=== PATIENT | female | born 1960 | race Caucasian/White ===

== ENCOUNTER 2018-09-05 08:21 | Inpatient (IN) ==
[~2018-09-05 08:21] MED LIST: MORPHINE SULFATE 15 MG TABLET.SA PO PRN; ROPIVACAINE HCL/PF 100 MG, EPINEPHrine 0.2 MG, KETOROLAC TROMETHAMINE 30 MG in NORMAL S... IJ PRN; TRANEXAMIC ACID 1,000 MG in NORMAL SALINE 100 ML IV PRN; ceFAZolin SODIUM 1 GM VIAL IV PRN
--- NOTE | 2018-09-05 09:04 | ANES ---
Anesthesia Pre Procedure Eval Vitals/Labs: Last Vital Signs Temp 36.8 C 09/05/18 08:40 Pulse 122 H 09/05/18 08:40 Resp 16 09/05/18 08:40 BP 130/87 09/05/18 08:40 Pulse Ox 99 09/05/18 08:40 HOME MEDICATIONS alprazolam 0.25 mg tablet 0.25 mg PO TID PRN 05/27/18 [Last Taken Unknown] levothyroxine 112 mcg capsule 112 mcg PO DAILY 05/27/18 [Last Taken Unknown] metoprolol tartrate 50 mg tablet 75 mg PO DAILY tab 05/27/18 [Last Taken Unknown] aspirin 81 mg tablet,delayed release 81 mg PO DAILY 05/31/18 [Last Taken Unknown] clopidogrel 75 mg tablet 75 mg PO DAILY 05/31/18 [Last Taken 08/30/18] tramadol 50 mg tablet See Rx Instructions PO Q6H #30 tab 07/21/18 [Last Taken Unknown] oxycodone-acetaminophen 5 mg-325 mg tablet See Rx Instructions PO Q6H #60 tab 08/02/18 [Last Taken Unknown] Allergies/Adverse Reactions: Allergies Allergy/AdvReac Type Severity Reaction Status Date / Time No Known Allergies Allergy Verified 07/18/18 20:00 - Planned Procedure Planned Procedure: Right Total Knee Arthroplasty Medication List Reviewed:: Yes Allergies Verified: Yes Medical History (Last Updated 09/05/18 @ 09:03 by Carroll Deluna CRNA) Sleep apnea Arthritis Onset Date: Unknown Constipation Onset Date: Unknown Diarrhea Onset Date: Unknown Knee osteoarthritis Onset Date: Unknown MRSA (methicillin resistant Staphylococcus aureus) Onset Date: Unknown buttock and nares Sinusitis Onset Date: Unknown hx of stent placement left leg Onset Date: 05/19/18 [facility] Surgical History (Last Reviewed 09/05/18 @ 09:02 by Carroll Deluna CRNA) H/O rotator cuff surgery right shoulder H/O bilateral breast reduction surgery Onset Date: 1999 H/O: hysterectomy Onset Date: 1998 Hx of cholecystectomy Onset Date: 1998 removed Other joint replacement by other means Onset Date: 2014 includes revision left 2013 and 2014 Family History (Last Reviewed 09/05/18 @ 09:02 by Carroll Deluna CRNA) Father Heart disease Brother Leukemia Mother Alive and well - Family Anesthesia History Family History:: no untoward family reactions to anesthesia, no familial bleeding tendencies, no family history of clotting disorders, no family history of premature - Airway/Neck/Teeth Within Normal Limits:: Yes Teeth Condition: Intact Denture Type: Perm crown/bridge Mallampatti Score: 3 Thyromental (T-M) distance: > 6 cm Mandibulo Hyoid distance: > 3 cm - Respiratory Respiratory: lungs clear Smoking Status: Never smoker Discussed smoking cessation including day of surgery: No Sleep Apnea currently treated: Yes Sleep Apnea by current assessment: No Discussed Risks/Treatment of JOCELYNN: No - Cardiovascular Tolerates Activity: Fair Heart Sounds: S1 & S2, Regular - Anesthesia Assessment and Plan ASA Class: PS, III Anesthesia Type Plan: Block - Right ultrasound guided peripherl nerve block for postop analgesia, Spinal
[2018-09-05] MEDS: RINGER'S SOLUTION,LACTATED 1,000 ML IV PRN ×3 (09:16→11:15)
[2018-09-05] MEDS ORDERED: MAGNESIUM HYDROXIDE 30 ML UDC PO PRN (11:27)
[2018-09-05] MEDS ORDERED: MAG HYDROX/ALUMINUM HYD/SIMETH 30 ML UDC PO PRN (11:27)
[2018-09-05] MEDS ORDERED: ACETAMINOPHEN 500 MG TABLET PO PRN (11:27)
[2018-09-05] MEDS ORDERED: ZOLPIDEM TARTRATE 5 MG TABLET PO PRN (11:27)
[2018-09-05] MEDS ORDERED: DEXTROSE 5%-LACTATED RINGERS 1,000 ML IV PRN (11:27)
[2018-09-05] MEDS ORDERED: diphenhydrAMINE HCL 50 MG/ML VIAL IV PRN (11:27)
--- NOTE | 2018-09-05 11:27 | OR ---
Operative Report - Dictated Report Narrative: Date: 09/05/2018 Preoperative diagnosis: Right Knee degenerative joint disease. Postoperative diagnosis: Right Knee degenerative joint disease. Procedure: Right Total knee arthroplasty. Surgeon: Erich Eugene M.D. Medical Sales: Hector Barboza PA-C Anesthesia: Spinal with regional block and local periarticular joint injection. Complications: None Specimens: Bone for disposal. Estimated blood loss: Minimal. Tourniquet time: 85 Minutes at 350 millimeters of mercury. Retained implants: Depuy Attune size 6 narrow right lugged cemented posterior stabilized femoral component. Size 5 fixed-bearing cemented tibial platform. 6 by 5 millimeter posterior stabilized cross-linked tibial insert. 35 millimeter medialized patella button. Indications: Mrs. Boyd is a 58-year-old female who has had long-standing right knee pain and arthrosis. This patient was followed in my clinic for period of time with significant complaints of right knee pain consistent with arthritic changes. She had failed conservative measures including, but not limited to, activity modification, passage of time, medications, and other conservative measures. Patient wished to proceed with surgical treatment. The risks, benefits, and alternatives were discussed in clinic. The risks of , blood clots, bleeding, infection, nerve/tendon blood vessel/ injury, malposition of components, intraoperative fracture, postoperative limited range of motion, persistent pain, failure of components, and need for additional procedures. Patient wished to proceed consent was obtained after answering all questions. Procedure: After marking the correct extremity on the floor, the patient was taken to the operating room. A timeout was performed. IV antibiotics consisting of Ancef were administered prior to the procedure. A regional followed by spinal anesthetic was induced by anesthesia, per my request, on the operative table with all bony prominences well-padded. Barlow catheter was placed, and a bump was placed under the operative side buttock. SCDs and ALEX hose were utilized on the nonoperative leg. A well-padded tourniquet was applied to the operative thigh. The operative leg was then pre-scrubbed with alcohol prepped, and draped in a standard sterile fashion. After exsanguinating the extremity with an Esmarch bandage, the tourniquet was inflated. After marking out the anterior knee for standard incision centered over the patella, the skin was incised and dissected down to the joint retinaculum. The joint retinaculum was marked out as well as the horizontal axis of the patella, and a standard medial parapatellar arthrotomy was then made. The most proximal aspect of the quadriceps tendon and the patella tendon insertion were protected from release. A partial synovectomy was performed as well as a resection of the infrapatellar fat pad. The distal femoral fat pad proximal to the trochlea was also resected using cautery. The soft tissues were elevated off the medial aspect of the proximal tibia using a Pearson elevator ensuring that we did not transect the medial collateral ligament. Upon initial evaluation range of motion was approximately 5 degrees to 120 degrees of flexion. There were signs of advanced arthrosis in the medial, lateral, and patellofemoral joint spaces. There were large marginal osteophytes which were removed with a rongeur. The knee was hyperflexed and the patella was tucked laterally. Protecting the surrounding soft tissues with Homans, an entry drill was placed down the femoral canal using Whitesides line for guidance into the entry point. The intramedullary femoral alignment laura was utilized in order to cut the distal femur in 5 degrees of valgus resecting 10 millimeters of bone. Next the distal femur was sized to a size 6. A posterior referencing guide was utilized to place the distal femoral cutting block in 3 degrees of external rotation. This was pinned into place. The rotation was confirmed both visually and based on anatomic landmarks. The 4 in 1 cutting jig of the appropriate size was utilized in order to make all bony cuts. The angle wing was used to ensure no notching. Retractors were utilized in order to protect surrounding soft tissues. This cut did not result in any excessive notching. We then cut the box centered over the distal femur. This allowed for resection of the anterior and posterior cruciate ligaments. I then turned my attention to the preparation of the tibia. Using an extra medullary tibial alignment laura, 5 millimeters of bone was resected off the medial articular surface. This was made perpendicular to the mechanical axis of the joint with the alignment laura centered over the ankle mortise. The alignment laura was checked and was noted to be parallel to the mechanical axis, centered over the medial one third of the tibial tubercle, paralleling the anterior surface of the tibia. We then turned our attention to the remaining meniscus and soft tissues. These were removed while protecting the surrounding ligaments and soft tissues. The marginal osteophytes off the anterior, posterior, medial, lateral aspects of the femur and tibia were removed. The tibia was sized out to a size 5. Next the tibia was drilled and punched in an externally rotated position. Next the trial femur and a series of tibial inserts were utilized in order to allow for full extension and maximal flexion. It was found that a 5 millimeter insert gave the best range of motion and stability at multiple flexion points as well as at full extension there was less than 2 mm of gapping both medially and laterally. There is minimal anterior translation with the knee at 90 degrees of flexion and no signs of being able to dislocate the knee. The patella was then prepared. The initial thickness was 23 millimeters. This was reamed down to 13 millimeters parallel to the anterior surface of the patella. It was sized out to a size 35 medialized patella button. This was then drilled and trialed. Without any medial restraint the patella tracked appropriately and did not sublux or dislocate. At this point, it was felt these were the appropriate sized implants, and all trials were removed. The standard periarticular joint injection consisting of ropivacaine, Toradol, and epinephrine were injected into the periarticular joint tissues. The bony surfaces were thoroughly irrigated with a pulsatile-suction saline irrigation device. A bone plug from the prior resected anterior chamfer cut was placed into the drill hole at the distal femur. The bony surfaces were then dried in preparation for placement of the implants. The cement was vacuum mixed per the grocery department manager's instructions. The cement was placed on the dry bony surfaces and posterior aspect of the implants. The implants were impacted into place, removing all extruded cement. At this point anesthesia administered tranexamic acid per protocol intravenously. The knee was placed in extension with axial loading with the trial insert while the cement cured. Once the cement cured, all remaining extruded cement was removed. The knee was placed through a range of motion with the trial insert to ensure appropriate range of motion and stability. Final range of motion was approximately 0 to 120 degrees. The knee was again thoroughly irrigated with pulsatile saline lavage. The final polyethylene insert was then impacted into place ensuring no retained soft tissues. The remaining periarticular joint injection was injected. A medium Hemovac drain was placed exiting superior laterally. The knee was then placed over a triangle and the arthrotomy was closed with interrupted #1 Vicryl after thoroughly irrigating the joint. The deep and subcutaneous tissues were closed with interrupted 0 and 3-0 Vicryl respectively. Skin was closed with a running subcutaneous 3-0 Monocryl and Prineo Dermabond dressing. 4 x 4's, Sof-Rol, and a full leg Westley wrap were applied. All sponge, needle, blade, and instrument counts were correct prior to closing the wounds. Postoperative condition: The patient was awoken and transferred to the postanesthesia care unit in stable condition. Plan is to be admitted to the inpatient medical/surgical floor postoperatively for 24 hours of IV antibiotics, physical therapy, occupational therapy, and medical comanagement. Patient will be weightbearing as tolerated with range of motion as tolerated. DVT prophylaxis will be with SCDs, ALEX hose, and pharmacological anticoagulation. Anticipated hospital stay is approximately 1-3 days.
[2018-09-05] MEDS ORDERED: ALPRAZolam 0.25 MG TABLET PO PRN (11:29)
--- NOTE | 2018-09-05 11:48 | ANES ---
Post Anesthesia Discharge - Transfer of Care Transfer of Care handoff given to nurse: Yes - Discharge from PACU Discharge from PACU when meets criteria: Yes - Discharge to ASU Discharge to ASU-no complications/pt stable: Yes
--- NOTE | 2018-09-05 11:51 | ANES ---
Anesthesia Procedure Note Procedure Note: ANESTHESIA PROCEDURE NOTE Date of Procedure: 09/05/2018. Time of procedure: 924. Performed by: Carroll Deluna CRNA [employer]: None. Preprocedure diagnosis: Right knee degenerative joint disease. Post procedure diagnosis: Same. Procedure: Right ultrasound guided adductor canal block for postoperative analgesia. Indications: The patient is a 58-year-old female, requesting right ultrasound- guided abductor canal block for postoperative analgesia related to right total knee arthroplasty. Findings: See below. Details of the procedure: The tissue over the intended target site was cleansed with ChloraPrepand draped in a sterile fashion. 2 ml Lidocaine 1 % was infiltrated to the skin and subcutaneous tissue at the intended target site. Under sterile technique and ultrasound guidance a 18-gauge Tuohy needle was inserted through the right sartorius muscle to the saphenous nerve just anterior and medial to the superficial femoral artery and vein. 15 mL's of 0.5% bupivacaine was injected after negative aspiration for blood. Needle tip and spread of local anesthetic surrounding the saphenous nerve was observed throughout the injection with real time ultrasound visualization. The Tuohy needle was then removed intact. No complications were noted. The images were retained in the Hospital medical database. EBL: Minimal. Fluids: N/A. Specimen: N/A. Post procedure condition: The patient tolerated the procedure well. No complications were noted. Thank you for this consultation. Carroll Deluna CRNA
[2018-09-05] MEDS: KETOROLAC TROMETHAMINE 15 MG/ML VIAL IV SCH ×3 (12:27→23:31)
[2018-09-05] MEDS: oxyCODONE HCL/ACETAMINOPHEN 1 TAB TABLET PO PRN ×2 (14:19→19:23)
[2018-09-05] MEDS: ceFAZolin SODIUM 1 GM in DEXTROSE 5 % IN WATER 100 ML IV SCH ×4 (14:20→19:42)
[2018-09-05] MEDS: MORPHINE SULFATE 2 MG/ML DISP.SYRIN IV PRN (14:56)
[2018-09-05] MEDS: ASPIRIN 81 MG TAB.CHEW PO SCH (21:07)
[2018-09-05] MEDS: SENNOSIDES/DOCUSATE SODIUM 1 TAB TABLET PO SCH (21:07)
[2018-09-05] MEDS: MORPHINE SULFATE 15 MG TABLET.SA PO SCH (21:07)
[2018-09-05] MEDS: ONDANSETRON HCL/PF 2 MG/ML VIAL IV PRN (23:29)
[2018-09-06] MEDS: ONDANSETRON HCL/PF 2 MG/ML VIAL IV PRN ×2 (00:33→13:30)
[2018-09-06] MEDS: KETOROLAC TROMETHAMINE 15 MG/ML VIAL IV SCH ×4 (00:36→17:57)
[2018-09-06] MEDS: ceFAZolin SODIUM 1 GM in DEXTROSE 5 % IN WATER 100 ML IV SCH ×2 (00:37)
[2018-09-06] MEDS: MORPHINE SULFATE 2 MG/ML DISP.SYRIN IV PRN ×3 (01:48→18:46)
[2018-09-06] MEDS: oxyCODONE HCL/ACETAMINOPHEN 1 TAB TABLET PO PRN ×4 (05:00→22:22)
[2018-09-06 05:23] LABS: Hematocrit 33.8 % (37.0-47.0); Mean Cell Volume 80.7 fl (78-100); Mean Corpuscular Hemoglobin 23.9 pg (27-31); Mean Corpuscular Hgb Conc 29.6 g/dl (32-36); Mean Platelet Volume 8.8 fl (8-12.5); Platelet Count 320 K/mm3 (150-450); Red Blood Count 4.19 M/mm3 (4.2-5.4); Red Cell Distribution Width 16.1 % (11.5-14.0); White Blood Count 7.1 K/mm3 (4.0-10.5)
[2018-09-06 05:31] LABS: Anion Gap 8.8 mmol/L (6.8-13.8); BUN/Creatinine Ratio 14.1 (9.0-21.6); Calcium * 7.9 mg/dL (7.9-10.9); Carbon Dioxide 29.2 mmol/L (24-32.6); Estimated Creat Clear 71.5
[2018-09-06] MEDS: LEVOTHYROXINE SODIUM 112 MCG TABLET PO SCH (06:58)
--- NOTE | 2018-09-06 08:08 | PN ---
Subjective - Date and Time Seen Date: 09/06/18 Time: 08:04 Subjective Narrative: Subjective: Reports difficulty sleeping last night. Was able to get to the chair with therapy. Pain is well-controlled. Voiding without any complications. Tolerating by mouth intake. Denies any nausea or vomiting. Denies calf pain. Physical exam: Alert and oriented to person, place and time Right lower Extremity: Palpable dorsalis pedis pulse. Sensation grossly intact to light touch. Dressings clean and dry. Able to flex and extend ankle and toes. No excessive drainage. Calf and thigh are soft and nontender. Assessment: Postop day 1 status post right total knee arthroplasty. Plan: Due to the need for pain control, post-operative limited mobility, protection of the surgical site and joint, monitoring of the wound, and the management of chronic medical conditions, she requires continued inpatient care. She has had continued pain and has been unable to meet therapy goals to allow her to safely be discharged home. Continue with physical and occupational therapy weightbearing as tolerated. Continue with anticoagulation. 24 hours postoperative prophylactic antibiotics. Pain control with goal to rely on oral medications. Continue bowel regimen. Will need 6 weeks with walker or assitive device to protect joint while ambulating during the recovery process. Discharge planning. Discontinue drain and Barlow catheter. Objective - Vitals Vitals: Last Vital Signs Temp 36.7 C 09/06/18 06:25 Pulse 92 09/06/18 06:25 Resp 16 09/06/18 06:25 BP 100/56 09/06/18 06:25 Pulse Ox 91 L 09/06/18 06:25 - Abnormal Lab Findings Abnormal Lab Findings: Abnormal Lab Results 09/06/18 Range/Units 05:17 RBC 4.19 L (4.2-5.4) M/mm3 Hgb 10.0 L (12.5-16.0) gm/dL Hct 33.8 L (37.0-47.0) % MCH 23.9 L (27-31) pg MCHC 29.6 L (32-36) g/dl RDW 16.1 H (11.5-14.0) % Cauti Physician Documentation - Urinary Catheter Management Urethral (Barlow) Date of Insertion: 09/05/18 Time of Insertion: 09:50 Assessment/Plan - Problems/Diagnosis (1) Acute blood loss anemia Problem: Acute (2) Sleep apnea Problem: Chronic (3) S/P total knee arthroplasty Problem: Acute Qualifiers: Laterality: right Qualified Code(s): Z96.651 - Presence of right artificial knee joint (4) Anxiety Problem: Chronic (5) Depression Problem: Chronic (6) Hypothyroid Problem: Chronic (7) Hypertension Problem: Chronic
[2018-09-06] MEDS ORDERED: ASPIRIN 81 MG TABLET.DR PO SCH (09:00)
[2018-09-06] MEDS: METOPROLOL TARTRATE 25 MG TABLET PO SCH (09:12)
[2018-09-06] MEDS: MORPHINE SULFATE 15 MG TABLET.SA PO SCH ×2 (09:13→20:30)
[2018-09-06] MEDS: ENOXAPARIN SODIUM 40 MG/0.4 ML SYRG SC SCH (11:01)
[2018-09-06] MEDS: SENNOSIDES/DOCUSATE SODIUM 1 TAB TABLET PO SCH (20:30)
[2018-09-06] MEDS: ASPIRIN 81 MG TAB.CHEW PO SCH (20:30)
[2018-09-07] MEDS: KETOROLAC TROMETHAMINE 15 MG/ML VIAL IV SCH ×2 (00:24→07:49)
[2018-09-07] MEDS: oxyCODONE HCL/ACETAMINOPHEN 1 TAB TABLET PO PRN ×2 (04:28→13:18)
[2018-09-07] MEDS: LEVOTHYROXINE SODIUM 112 MCG TABLET PO SCH (06:46)
[2018-09-07] MEDS: MORPHINE SULFATE 15 MG TABLET.SA PO SCH (09:45)
[2018-09-07] MEDS: METOPROLOL TARTRATE 25 MG TABLET PO SCH (09:46)
[2018-09-07] MEDS: ENOXAPARIN SODIUM 40 MG/0.4 ML SYRG SC SCH (09:48)
[2018-09-07] MEDS ORDERED: ONDANSETRON 4 MG TAB.RAPDIS PO PRN (11:59)
--- NOTE | 2018-09-07 15:28 | DS ---
(1) Acute blood loss anemia Problem: Acute (2) Sleep apnea Problem: Chronic (3) S/P total knee arthroplasty Problem: Acute Qualifiers: Laterality: right Qualified Code(s): Z96.651 - Presence of right artificial knee joint (4) Anxiety Problem: Chronic (5) Depression Problem: Chronic (6) Hypothyroid Problem: Chronic (7) Hypertension Problem: Chronic Description of Stay: Mrs. Boyd was admitted to the floor after undergoing right total knee arthroplasty. Tolerated this well. Was admitted to the floor postoperatively for 24 hours of IV antibiotics, pain control, medical comanagement, and occupational and physical therapy. OT and PT were consulted to assist with activities of daily living and ambulation. Was made weightbearing as tolerated with range of motion as tolerated. Pain was initially controlled with IV regimen. This was transitioned to oral once tolerating a by mouth intake. Was resumed on home diet and medications. Had a Barlow catheter inserted and the operating room which was discontinued on postoperative day 1. A drain was placed intraoperatively into the knee which was discontinued on postoperative day 1. Lovenox SCD and ALEX hose were utilized for DVT prophylaxis. Vital signs remained stable to the hospital course. Serial labs were obtained which showed a final hemoglobin of 10.0 grams. BMP was reviewed and was stable. Physical examination throughout the hospital course showed an extremity that had sensation that was intact to light touch, palpable pulses, a benign wound, motor intact to the toes, ankle, and knee. Knee range of motion was approximately 10 degrees to 60 degrees. Once an oral pain regimen was tolerated and physical therapy goals were met, it was felt that they were stable for discharge to home. Instructions: Continue with weightbearing as tolerated and range of motion as tolerated. It is okay to shower and get the wound wet as long as there is no drainage from the wound. Do not bathe or soak the wound. If there is any drainage from the wound keep the wound clean and dry and cover with dry gauze and tape. Change every 2- 3 days as needed if there is any drainage. Cover wound while showering if there is any drainage. Continue with physical therapy. Resume home diet. Report any fever over 101.5 Fahrenheit, uncontrolled pain, increased drainage, foul odor of drainage, new or increased calf pain or shortness of breath, or any other significant complaints. Plavix will be restarted in approximately 3-4 days. A 325mg dialy aspirin will be started after finishing anticoagulation if not allergic. Continue with ALEX hose on the operative extremity until instructed otherwise. No driving until instructed otherwise. Follow up in approximately 10-14 days. Procedures Performed: see notes below List Procedures: Right total knee arthroplasty Results and Findings: Lab Pending Results 09/06/18 05:17: WBC 7.1, RBC 4.19 L, Hgb 10.0 L, Hct 33.8 L, MCV 80.7, MCH 23.9 L, MCHC 29.6 L, RDW 16.1 H, Plt Count 320, MPV 8.8 09/06/18 05:17: Sodium 140, Plasma Sodium 140, Potassium 4.0, Chloride 106, Carbon Dioxide 29.2, Anion Gap 8.8, BUN 11, Creatinine 0.78, Est GFR (Non-Af Amer) 81, BUN/Creatinine Ratio 14.1, Random Glucose 100, Calcium 7.9 Discharge Location: Home Disposition: Home self-care Condition: Good Discharge Activity: Activity as tolerated, Weight bearing Discharge Diet: General/regular food Referrals: Velma To FNP [Primary Care Provider] - Additional Patient Instructions (free text): Outpatient Physical Therapy at [facility] rehab tomorrow on Sep 08 at 9:45am. Follow up with Orthopedic Dr. Eugene on WednesdaySeptember 27 at 10:45am. Prescriptions (Any new or edited meds): Enoxaparin Sodium [Lovenox] 40 mg SC Q24H #7 disp.syrin Morphine Sulfate [Ms Contin] 15 mg PO Q12H #20 tablet.sa Ondansetron [Zofran Odt] 4 mg PO Q6H PRN #20 tab.rapdis PRN Reason: Nausea And Vomiting oxyCODONE HCL/ACETAMINOPHEN [Percocet 5 MG/325 MG] 2 tab PO Q4H PRN #60 tablet PRN Reason: Moderate Pain (Pain Scale 4-6) Complete Home Medications List: Complete Home Medication List: alprazolam 0.25 mg tablet 0.25 mg PO TID PRN 05/27/18 levothyroxine 112 mcg capsule 112 mcg PO DAILY 05/27/18 metoprolol tartrate 50 mg tablet 75 mg PO DAILY tab 05/27/18 clopidogrel 75 mg tablet 75 mg PO DAILY 05/31/18 Enoxaparin Sodium [Lovenox] 40 mg SC Q24H #7 disp.syrin 09/07/18 Morphine Sulfate [Ms Contin] 15 mg PO Q12H #20 tablet.sa 09/07/18 Ondansetron [Zofran Odt] 4 mg PO Q6H PRN #20 tab.rapdis 09/07/18 Sennosides/Docusate Sodium [Senokot-S] 2 tab PO HS tablet 09/07/18 oxyCODONE HCL/ACETAMINOPHEN [Percocet 5 MG/325 MG] 2 tab PO Q4H PRN #60 tablet 09/07/18 Amb Orders for Discharge: PT Evaluation and Treatment* Facility: [facility], Location: Rehabilitation Services
[2018-09-07 17:17] VITALS: BP 112/66
== END 2018-09-07 16:30 | disposition home or self-care (01) | DRG 470 ==
LOC: MS 08:21 → EDSTATUS 10:15
PROVIDERS: ADMIT Orthopaedic Surgery; ATTEND Orthopaedic Surgery
CPT/HCPCS: 36415; 73560; 80048; 85027; 90686; 94660; 97110; 97116; 97161; 97165; 97535; J2405